=== PATIENT | male | born 1970 | race Caucasian/White ===

== ENCOUNTER 2021-04-12 00:03 | Emergency (ER) | payer BC, SELFPAY ==
[2021-04-12 00:08] VITALS: BP 127/74; PULSE 98; RESP 18; TEMP 36.6; O2SAT 95
--- NOTE | 2021-04-12 00:14 | W.ED.GENAD ---
Discharge Plan Disposition Patient Disposition: HOME Condition: Good Discharge Details Clinical Impression: Kidney stone on left side Primary Care Provider: None,None ED Provider: Isidoro Zafar Home Meds and New Rx's Prescriptions: New tamsulosin [Flomax] 0.4 mg capsule 0.4 mg PO DAILY Qty: 7 RF: 0 Discharge Instructions Instructions: Kidney Stones (ED) Additional Instructions: At this time you have evidence of a small kidney stone. This is likely the cause of your symptoms. This should pass within the next 12 to 48 hours, if not earlier. Please drink plenty of fluids, 10 to 12 cups/day at least. Please take 800 mg of ibuprofen every 6 hours and 1000 mg of Tylenol every 6 hours as needed for pain. These are the maximum doses of these medicines. Please take the Flomax as directed. This will help in expediting the passage of your kidney stone. If your pain stops, you can stop taking the Flomax. Please strain your urine to collect the stone. This can then be analyzed by your family doctor. If you do not have resolution of your symptoms after 48 to 72 hours please follow-up closely with your family doctor or return here for reassessment. If you notice any worsening of your symptoms, or any new symptoms such as inability to urinate, vomiting, diarrhea, fever, chills, shortness of breath, chest pain, numbness, weakness, or fainting , please return immediately to the emergency department for reevaluation. Please follow up with your primary care provider as soon as possible for reassessment and reevaluation. As always, it was a pleasure participating in your medical care today. Medical Decision Making This is a 50-year-old male with no significant past medical history who presents today for left flank pain. Patient states that about 6 PM he developed left-sided flank pain he describes as a 3 out of 10, sharp and achy, radiating down towards his left groin. He denies any genital pain or penile pain. He denies any urinary changes aside for slightly darker colored urine than normal. He has no history of kidney stones. No other aggravating or modifying factors. No other complaints at this time. He denies any nausea, vomiting, diarrhea, chest pain. Exam demonstrates no significant flank tenderness, no inguinal hernia, no testicular tenderness or penile tenderness. Differential is highest for kidney stone versus UTI or dehydration. We will start with urinalysis, Tylenol Motrin, monitor closely and reassess. 1:18 AM On reassessment pain is gone and notably tolerable with the patient after Tylenol and Motrin. Laboratory work-up is unremarkable. No white count, renal function stable. No electrolyte abnormality. Urinalysis shows no evidence of urinary tract infection, but does show notable RBCs. CT scan was ordered and demonstrates evidence of a 4 x 2 mm distal left UVJ calculus projecting into the bladder. I suspect that the stone may have passed at this point with the patient's notable improvement of symptoms. A single dose of Flomax was given here. We will give a prescription for home use if the patient feels persistent pain. Recommend continue Tylenol Motrin, and fluid intake. With pain well controlled, no evidence of infection, inability to tolerate p.o., or significant renal dysfunction I feel the patient can be discharged. Discussed red flags for which to return. I have extensively reviewed the treatment plan and discharge instructions with the patient. I have addressed all patient concerns at this time. The patient was made aware of what symptoms to monitor for that would warrant a return to the emergency department. Discussed the plan with the patient, they demonstrate verbal understanding and agreement with our assessment and plan at this time. The documentation in this chart was dictated using [employer] dictation software. Please excuse any dictation errors. FINDINGS: Liver: Simple cyst in the posterior right lobe Gallbladder and bile ducts: Normal. No calcified stones. No ductal dilation. Pancreas: Normal. No ductal dilation. Spleen: Normal. No splenomegaly. Adrenal glands: Normal. No mass. Kidneys and ureters: Mild left hydroureteronephrosis. Faint nephrocalcinosis bilaterally Faint left renal calculus in the midpole. Left renal cyst noted Stomach and bowel: Unremarkable. No obstruction. No mucosal thickening. Appendix: No evidence of appendicitis. Intraperitoneal space: Unremarkable. No free air. No significant fluid collection. Vasculature: Atherosclerosis. No abdominal aortic aneurysm. Lymph nodes: Unremarkable. No enlarged lymph nodes. Urinary bladder: 4 x 2 mm calculus in the distal left UVJ projecting into the bladder. Bladder is partially decompressed and question mildly thickened Reproductive: Unremarkable as visualized. Bones/joints: Degenerative changes in the spine No acute fracture. Soft tissues: Unremarkable. IMPRESSION: Mild left obstructive uropathy secondary to a 4 x 2 mm distal left UVJ calculus projecting into the bladder Faint nephrocalcinosis and faint left renal calculus in the midpole Thank you for allowing us to participate in the care of your patient. Dictated and Authenticated by: Ricardo Manriquez MD 04/12/2021 1:14 AM Eastern Time ([place] & [place]) HPI General Date/Time Provider Initiated Documentation: 04/12/21 00:06. HPI Narrative: This is a 50-year-old male with no significant past medical history who presents today for left flank pain. Patient states that about 6 PM he developed left-sided flank pain he describes as a 3 out of 10, sharp and achy, radiating down towards his left groin. He denies any genital pain or penile pain. He denies any urinary changes aside for slightly darker colored urine than normal. He has no history of kidney stones. No other aggravating or modifying factors. No other complaints at this time. He denies any nausea, vomiting, diarrhea, chest pain. Related Data Home Medications Medication Instructions Recorded Confirmed tamsulosin [Flomax] 0.4 mg PO DAILY #7 cap 04/12/21 Previous Rx's Medication Instructions Recorded tamsulosin [Flomax] 0.4 mg PO DAILY #7 cap 04/12/21 Allergies Allergy/AdvReac Type Severity Reaction Status Date / Time poison chante Allergy Intermediate Skin Rash Uncoded 04/12/21 00:11 General Stated Complaint: Urinary PARUL: 3 Review of Systems All systems reviewed & are unremarkable except as noted in HPI and below ON LICENSE OF [facility] Social History Smoking/Tobacco Use Status: Current every day Tobacco Type: cigarettes Smoking risk assessment performed?: Yes Alcohol Intake: former Drug use: Never Substance use type: does not use Do you feel safe at home: Yes Do you feel safe in your relationship?: Yes Exam Narrative Exam Narrative: 1.Const: Well-nourished, Well-developed, appearing stated age 2.Eyes: PERRL, no conjunctival injection, and symmetrical lids. 3.ENT: Atraumatic external nose and ears. Moist MM. Neck: Symmetric, trachea midline, No thyromegaly. 4.CVS: +S1/S2, No murmurs or gallops. Peripheral pulses 2+ and equal in all extremities. Brisk capillary refill in all extremities. 5.RESP: Unlabored respiratory effort. Clear to auscultation bilaterally. No wheezes rales or rhonchi 6.GI: Soft, Nontender/Nondistended, No hepatosplenomegaly. No guarding or rebound. No flank or CVA tenderness. Genital exam demonstrates normal male genitalia, nontender testicles, normal cremasteric reflex. No evidence of hernia. 7.MSK: Normocephalic/Atraumatic, Extremities w/o deformity or ttp No cyanosis or clubbing, Normal movement of all extremities 8.Skin: Warm, Dry. No rashes or lesions. 9.Neuro: anode rebuilder II-XII grossly intact. Sensation grossly intact, no focal neurologic deficits. 10.Psych: (AAO) x3. Appropriate mood and affect Course Vital Signs Vital signs: Vital Signs Temperature 36.6 C 04/12/21 00:08 Pulse 98 H 04/12/21 00:08 Respiratory Rate 18 04/12/21 00:08 Blood Pressure 127/74 04/12/21 00:08 Pulse Oximetry 95 04/12/21 00:08 Temperature 36.6 C 04/12/21 00:08 Temperature Source Skin 04/12/21 00:08 Pulse 98 H 04/12/21 00:08 Respiratory Rate 18 04/12/21 00:08 Blood Pressure 127/74 04/12/21 00:08 Pulse Oximetry 95 04/12/21 00:08 Pain Level 3 04/12/21 00:08
--- NOTE | 2021-04-12 00:15 | DI.CT_ITS ---
Exam(s) CT RENAL COLIC WO EXAM: CT RENAL COLIC WO CLINICAL HISTORY: suspect left kidney stone, hematuria. TECHNIQUE: Imaging Protocol: Axial computed tomography images with coronal and sagittal reformatted images were created and reviewed CONTRAST MATERIAL: Intravenous: none Oral: None COMPARISON: No exams were available for comparison FINDINGS: VISUALIZED LUNG BASES: Mild increased markings in the inferior lingular segment left lung at in the p osterior basal segment right lower lobe. No pleural effusions. ABDOMEN: There is no ascites. LIVER: In the medial subcapsular right hepatic lobe (adjacent to the right kidney) there is an 11 x 1 0 millimeter either subcapsular cyst or hemangioma. Difficult to assess without IV contrast. GALLBLADDER/BILIARY: No obvious gallbladder pathology. CBD is not dilated. PANCREAS: No evidence of pancreatic mass nor dilatation of the pancreatic duct. SPLEEN: Spleen is not enlarged. No obvious intrasplenic lesions. ADRENALS: There are no significant adrenal masses. KIDNEYS:No cysts evident. No solid renal masses. There is a 2 millimeter nonobstructive calculus at the midpole level of the left kidney. Mild dilatation of the left ureter which is due to intramural calculus at the left ureterovesical junction measuring 4 x 2 millimeters. Urinary bladder is not dis tended. Exhibits thicken the uniform wall. There are no calculi in the right ureter and right kidne y. ABDOMINAL AORTA: The abdominal aorta is calcified upper limits normal diameter LYMPH NODES: There is no retroperitoneal nor paraaortic adenopathy. ABDOMINAL WALL: No evidence of significant anterior abdominal wall hernia. GI: There is no evidence of bowel obstruction, free air, nor abscess. PELVIS: LYMPH NODES: There is no intrapelvic nor inguinal adenopathy. GI: No evidence of appendicitis.No evidence of sigmoid diverticulitis. URINARY BLADDER: Uniformly thickened wall. Intramural 4 x 2 millimeter calculus at the left ureterov esical junction. REPRODUCTIVE: Prostate size upper normal. Contains a calcifications therein. OSSEOUS: No significant osseous lesions. IMPRESSION: 1. There is mild dilatation left collecting system due to a culprit 4 x 2 millimeter distal left uret eral calculus which is intramural at left UVJ and partially projecting into the bladder lumen. 2. There is a 2 millimeter nonobstructive calculus at the midpole of the left kidney. No obvious lila culi in the right kidney. RADIATION DOSE DELIVERED: 533.71mGy.cm Total DLP DATA REPOSITORY: All CT scans at this facility are submitted to the National Radiology Data Registry (NRDR) Dose Index Registry (DIR) with the [employer] (ACR). RADIATION OPTIMIZATION: All CT scans at this facility use at least one of these dose optimization te chniques: automated exposure control; mA and/or kV adjustment per patient size (includes targeted exa ms where dose is matched to clinical indication); or iterative reconstruction.
[2021-04-12] MEDS: Acetaminophen 500 MG TAB 1000 MG PO (00:19)
[2021-04-12] MEDS: Ibuprofen 800 MG TAB PO (00:20)
[2021-04-12 00:23] LABS: Bilirubin Moderate (Negative); Blood Large (Negative); Clarity Cloudy (Clear); Glucose Negative (Negative); Ketones 40 mg/dL (Negative); Leukocyte Esterase Negative (Negative); Nitrite Negative (Negative); Specific Gravity >= 1.030 (1.005-1.025); pH 5.5 (5-8)
[2021-04-12 00:28] LABS: Bacteria Negative HPF (Negative); C & S Indicated? No; Casts Negative LPF (Negative); Crystals Negative HPF (Negative); Epithelial Cells Negative HPF (Negative); Mucus Negative (Negative); RBC >50 HPF (0-2); WBC Negative HPF (0-5)
[2021-04-12] MEDS: Tamsulosin 0.4 MG CAPCR PO (00:40)
[2021-04-12 00:56] LABS: Abs Immature Grans 0.04 10^3/uL (0.0-0.06); Absolute Basophil Count 0.02 10^3/uL (0.0-0.2); Absolute Eosinophil Count 0.13 10^3/uL (0.0-0.7); Absolute Lymphocyte Count 1.67 10^3/uL (1.2-3.4); Absolute Monocyte Count 0.68 10^3/uL (0.1-0.8); Absolute Neutrophil Count 7.59 10^3/uL (1.2-6.7); Basophils % 0.2; Eosinophils % 1.3; HCT 45.2 % (40.0-50.0); HGB 15.2 g/dL (13.5-17.5); Immature Grans % 0.4; Lymphocytes % 16.5; MCHC 33.6 % (32.0-36.0); MCV 92.1 fL (80-95); MPV 9.6 fL (8.0-11.0); Monocytes % 6.7; Neutrophils % 74.9; Nucleated RBC 0 %; Platelet Count 172 10^3/uL (130-400); RBC 4.91 10^6/uL (4.36-5.78); RDW 12.7 % (11.8-14.1); RDW-SD 43.6 fL; WBC 10.13 10^3/uL (4.4-10.8)
[2021-04-12 01:01] LABS: Anion Gap 12.1 mmol/L (3-11); BUN 26 mg/dL (7-18); CO2 25.9 mmol/L (21.0-32.0); Calcium 9.2 mg/dL (8.5-10.1); Chloride 103 mmol/L (98-107); Glucose 107 mg/dL (74-106); Sodium 141 mmol/L (136-145)
--- NOTE | 2021-04-12 01:15 | DI.VRAD_ITS ---
PROCEDURE INFORMATION: Exam: CT Abdomen And Pelvis Without Contrast Exam date and time: 04/12/2021 12:29 AM Age: 50 years old Clinical indication: Other: Left sided pain suspect kidey stone hematuria TECHNIQUE: Imaging protocol: Computed tomography of the abdomen and pelvis without contrast. Radiation optimization: All CT scans at this facility use at least one of these dose optimization techniques: automated exposure control; mA and/or kV adjustment per patient size (includes targeted exams where dose is matched to clinical indication); or iterative reconstruction. COMPARISON: No relevant prior studies available. FINDINGS: Liver: Simple cyst in the posterior right lobe Gallbladder and bile ducts: Normal. No calcified stones. No ductal dilation. Pancreas: Normal. No ductal dilation. Spleen: Normal. No splenomegaly. Adrenal glands: Normal. No mass. Kidneys and ureters: Mild left hydroureteronephrosis. Faint nephrocalcinosis bilaterally Faint left renal calculus in the midpole. Left renal cyst noted Stomach and bowel: Unremarkable. No obstruction. No mucosal thickening. Appendix: No evidence of appendicitis. Intraperitoneal space: Unremarkable. No free air. No significant fluid collection. Vasculature: Atherosclerosis. No abdominal aortic aneurysm. Lymph nodes: Unremarkable. No enlarged lymph nodes. Urinary bladder: 4 x 2 mm calculus in the distal left UVJ projecting into the bladder. Bladder is partially decompressed and question mildly thickened Reproductive: Unremarkable as visualized. Bones/joints: Degenerative changes in the spine No acute fracture. Soft tissues: Unremarkable. IMPRESSION: Mild left obstructive uropathy secondary to a 4 x 2 mm distal left UVJ calculus projecting into the bladder Faint nephrocalcinosis and faint left renal calculus in the midpole Dictated and Authenticated by: Ricardo Manriquez MD. Ordering:HIRA Chaudhry MD
[2021-04-12 01:37] VITALS: BP 126/77; PULSE 83; RESP 16; O2SAT 96
== END 2021-04-12 01:39 | disposition home or self-care (01) ==
PROVIDERS: Emergency Provider Student in an Organized Health Care Education/Training Program
DX: N20.0 Calculus of kidney (principal)
CPT/HCPCS: 36415; 80048; 99284; 74176; 81003; 81015; 85025; 99283

== ENCOUNTER 2021-06-18 13:15 | Emergency (ER) | payer BC, SELFPAY ==
--- NOTE | 2021-06-18 13:29 | ED.GENADUL_ITS ---
Discharge Plan Disposition Patient Disposition: HOME Condition: Stable Discharge Details Clinical Impression: Stress, Anxiety, Acute muscle stiffness of neck Primary Care Provider: None,None ED Provider: Dulce Maria Ochoa Home Meds and New Rx's Prescriptions: New methocarbamol 750 mg tablet 750 mg PO QID PRN (Reason: muscle spasm) Qty: 14 RF: 0 Discharge Instructions Instructions: Muscle Spasm (ED), Anxiety (ED) Additional Instructions: Please continue to encourage hydration. You may continue with Tylenol and/or ibuprofen as needed for discomfort. Heat and/or ice may also be of benefit. Please encourage gentle stretching. Massage may also be of benefit. You may try topical options such as lidocaine patch to help with your discomfort. Referral for physical therapy is also attached. Please call local physical therapist office to schedule follow-up appointment, number is at the top of the form. A prescription for muscle relaxant has been sent to your local pharmacy. This should help with the spasm component of her discomfort. Please do not drive or drink alcohol while taking this medication. In regard to your anxiety and stress, please continue to try and identify your anxiety triggers and reduce sleep as much as possible. Referral for local primary care has been sent. I would like for you to follow- up for your anxiety as well as your neck discomfort. If you develop numbness, tingling, weakness, increased pain or other new/worsening symptoms please seek care urgently once again. Stand Alone Forms: Physical Therapy Referral Discharge Data Discharge Date/Time-TO BE ENTERED AT DEPARTURE: 06/18/21 14:15 Medical Decision Making Patient is a pleasant 50-year-old male presenting today with chief complaint of neck pain. He states that the discomfort began insidiously approximately 5 months ago. He reports he does push or pull heavy things at work, patient works at [employer]. However, no sudden onset of discomfort. He states that since then, pain has remained fairly status quo. Denies any radiation of pain. Denies any fevers or chills. Is feeling otherwise well. Presents today with his pain has progressively increased. She does not report that his anxiety seems to greatly increased discomfort. When asked which is very on a 1-10 scale of discomfort, p atient did not feel the number is more tightness than pain and that his primary issue is likely associated with his chronic anxiety. Patient does not have a local primary care. He reports he has not seen a physician for routine follow-up care for several years. States that when he gets anxious, can become quite tremulous. States that his mother has similar features. He reports he increases his anxiety, the tightness in his neck and also increased. He denies any numbness or tingling. No weakness. Denies any radiation of the symptoms. On exam, patient appears very anxious. When discussing things that increase his anxiety, he does have a bit of a tremor that has seemed to go away once he is discussing more calm topics. He has no neurological deficits noted on exam. No midline tenderness. He is full range of motion of his neck. Pain is not elicited with palpation. Patient does draw a line along both trapezius, right more so than the left, as area of tightness. Patient I discussed options for treatment of his neck discomfort. I feel that this is most consistent with muscle tightness and stress. Again, I see no neurological deficit. Regarding his anxiety, patient does not have any thoughts of self-harm. He feels safe at home. I did feel that his anxiety has increased with time as his social situation has become more stressful. Patient is currently caring for both mother and father. He has a serious good support and does not feel like he needs immediate psychiatric evaluation. However, he is in agreement to discuss this further with primary care. Will refer for primary care follow-up as possible discussed with his anxiety as well as neck discomfort. Patient is agreeable to attending physical therapy for his neck pain as well. Will also help with muscle relaxers he does feel tight on exam. He has tried Tylenol, ibuprofen and topical options. He has not yet used lidocaine, may try this for today and advised that this is available [id number]. Return precautions were discussed. All his questions and concerns were addressed. Plan. HPI General Mode of arrival: ambulatory . Date/Time Provider Initiated Documentation: 06/18/21 13:29 . Limitations to Documentation: no limitations . Information obtained by: patient and RN notes reviewed . History of Present Illness 50 year old M presents to the emergency department with the chief complaint of neck pain, described as moderate, Quality is described as aching, and is localized to the neck. Patient reports no radiation. Patient started experiencing this month(s) and it has been intermittent. Immobilization improves symptom(s), Movement worsens symptoms (worse when at work) . Patient notes no other symptoms.. Patient did receive the following treatments prior to arrival, NSAID and other (tylenol) Related Data Home Medications Medication Instructions Recorded Confirmed methocarbamol 750 mg PO QID PRN #14 tab 06/18/21 Previous Rx's Medication Instructions Recorded methocarbamol 750 mg PO QID PRN #14 tab 06/18/21 Allergies Allergy/AdvReac Type Severity Reaction Status Date / Time poison chante Allergy Intermediate Skin Rash Uncoded 04/12/21 00:11 General PARUL: 3 Review of Systems Constitutional Constitutional: Reports as per HPI, Denies chills, Denies fatigue, Denies fever(s), Denies frequent falls and Denies headache(s) ENT Ears, Nose, Mouth, and Throat: Denies headache(s) and Reports neck pain Cardiovascular Cardiovascular: Denies chest pain, Denies dyspnea and Denies dyspnea on exertion Respiratory Respiratory: Denies cough, Denies dyspnea and Denies dyspnea on exertion Gastrointestinal Gastrointestinal: Denies abdominal pain, Denies change in bowel habits and Denies fecal incontinence Genitourinary Genitourinary: Reports as per HPI, Denies urinary hesitancy and Denies urinary incontinence Musculoskeletal Musculoskeletal: Reports as per HPI, Denies back pain, Denies muscle weakness, Reports neck pain, Denies numbness, Denies radiating pain into limb, Reports stiffness and Denies tingling Integumentary/Breasts Skin/Breast: Reports as per HPI and Denies rash Neurologic Neurologic: Reports as per HPI, Denies frequent falls, Denies headache(s), Denies localized weakness, Denies numbness, Denies radicular pain, Denies sensory deficit, Denies tingling and Denies paresthesias Endocrine Endocrine: Denies fatigue [facility] Social History Smoking/Tobacco Use Status: Current every day Tobacco Type: cigarettes Smoking risk assessment performed?: Yes Alcohol Intake: former Drug use: Never Substance use type: does not use Do you feel safe at home: Yes Do you feel safe in your relationship?: Yes Exam Const General: cooperative, healthy appearing, comfortable, no acute distress, well developed, well groomed and anxious Nutritional Appearance: average body habitus and well nourished Orientation: alert and awake Eyes General: appearance normal, both eyes and all related structures Neck Neck: normal visual inspection, full ROM, no lymphadenopathy and no meningeal signs Resp Effort & Inspection: normal respiratory effort and able to speak in complete sentences Auscultation: clear to auscultation bilaterally, no rales, no rhonchi and no wheezes Cardio Rate: regular rate Rhythm: regular rhythm Heart Sounds: S1 normal and S2 normal Back/Spine/Pelvis Cervical Spine: normal cervical lordosis, cervical ROM normal, cervical muscular tenderness (none with pain, indicates trapezius as area of dis), No pain with cervical ROM, cervical spasm (feels tight on both sides), No cervical spinal tenderness (no midline tenderness) and No step off deformity Thoracic/Lumbar Spine: thoracic and lumbar spine normal to inspection Skin General skin exam: no rashes or lesions noted Neuro General: patient alert and patient awake Cognition: normal cognition Speech: speech normal Gait: normal gait Motor: muscle tone normal throughout and strength 5/5 throughout Sensory Exam: no sensory deficits noted DTR's: Rt Biceps: 2+, Lt Biceps: 2+, Rt Brachioradialis: 2+ and Lt Brachioradialis: 2+ Extrem General: normal to inspection, full ROM, capillary refill normal, no joint enlargement, no pedal edema, no calf tenderness and normal gait Psych Appearance: grossly normal and well kempt Mental Status: mental status grossly normal Speech and Movement: speech and movement normal
[2021-06-18 13:53] VITALS: BP 149/88; PULSE 100; RESP 18; TEMP 36.9; O2SAT 97
[2021-06-18] MEDS: Lidocaine 5% Patch 1 PATCH TP (14:10)
--- NOTE | 2021-06-18 18:59 | NUR.NOTE ---
Nursing Note: referral faxed to care management for pcp/follow up - libl 06/18/21
--- NOTE | 2021-06-21 13:23 | CMPROGNOTE_ITS ---
- If Service Date Differs Date of service: 06/21/21 Time of Service: 13:23 Care Management Progress Note Brian is seen in the ED on 06/18/21 for anxiety and muscle stiffness of neck. At the request of ED provider, PAZ coordinates a referral to [facility] to assist him in re-establishing care with a PCP. A review of his medical chart and a phone call to the [facility] reveals that he was formerly seen at their facility.
== END 2021-06-18 14:15 | disposition home or self-care (01) ==
PROVIDERS: Emergency Provider Physician Assistant
DX: M43.6 Torticollis (principal); F41.9 Anxiety disorder, unspecified; Z73.3 Stress, not elsewhere classified
CPT/HCPCS: 99283

== ENCOUNTER 2021-08-30 01:56 | Outpatient (CLI) | payer BC, SELFPAY ==
[2021-08-30 16:05] LABS: Abs Immature Grans 0.01 10^3/uL (0.0-0.06); Absolute Basophil Count 0.02 10^3/uL (0.0-0.2); Absolute Lymphocyte Count 2.06 10^3/uL (1.2-3.4); Absolute Monocyte Count 0.38 10^3/uL (0.1-0.8); Absolute Neutrophil Count 2.29 10^3/uL (1.2-6.7); Basophils % 0.4; Eosinophils % 2.1; HCT 44.9 % (40.0-50.0); HGB 14.7 g/dL (13.5-17.5); Immature Grans % 0.2; Lymphocytes % 42.4; MCH 30.2 pg (27.0-33.0); MCHC 32.7 % (32.0-36.0); MCV 92.4 fL (80-95); MPV 9.3 fL (8.0-11.0); Monocytes % 7.8; Neutrophils % 47.1; Nucleated RBC 0 %; Platelet Count 161 10^3/uL (130-400); RBC 4.86 10^6/uL (4.36-5.78); RDW 13.2 % (11.8-14.1); RDW-SD 45.1 fL; WBC 4.86 10^3/uL (4.4-10.8)
[2021-08-30 17:06] LABS: ALT 48 U/L (16-63); AST 24 U/L (15-37); Albumin 4.2 g/dL (3.4-5.0); Alkaline Phosphatase 105 U/L (46-116); Anion Gap 9.8 mmol/L (3-11); BUN 19 mg/dL (7-18); Bilirubin, Total 0.4 mg/dL (0.2-1.0); CO2 26.2 mmol/L (21.0-32.0); CREATININE 0.8 mg/dL (0.70-1.30); Calcium 8.7 mg/dL (8.5-10.1); Calculated LDL 207 mg/dL (<100); Chloride 104 mmol/L (98-107); Cholesterol 266 mg/dL (<200); Glucose 91 mg/dL (74-106); HDL Cholesterol 44 mg/dL (40-60); Potassium 4.4 mmol/L (3.5-5.1); Sodium 140 mmol/L (136-145); TSH (W/Ref FT4) 1.39 uIU/mL (0.36-3.74); Total Protein 7.6 g/dL (6.4-8.2); Triglyceride 75 mg/dL (<150)
[2021-08-31 10:56] LABS: Hepatitis C Ab w Rflx HCV PCR Negative (Negative)
[2021-08-31 11:14] LABS: HIV-1/2 Ag & Ab Screen Negative (Negative)
== END 2021-08-30 01:57 | disposition home or self-care (01) ==
LOC: LBO 01:56
PROVIDERS: PCP Nurse Practitioner Adult Health; Visit Provider Nurse Practitioner Adult Health
DX: F41.9 Anxiety disorder, unspecified (principal); Z13.220 Encounter for screening for lipoid disorders; Z13.1 Encounter for screening for diabetes mellitus; Z11.4 Encounter for screening for human immunodeficiency virus [HIV]; Z11.59 Encounter for screening for other viral diseases
CPT/HCPCS: 36415; 80053; 80061; 86803; 87389; 84443; 85025

== ENCOUNTER 2022-03-24 03:42 | Outpatient (CLI) | payer BC, SELFPAY ==
[2022-03-24 14:26] LABS: Calculated LDL 130 mg/dL (<100); Cholesterol 189 mg/dL (<200); HDL Cholesterol 48 mg/dL (40-60); Triglyceride 55 mg/dL (<150)
== END 2022-03-24 03:43 | disposition home or self-care (01) ==
LOC: LBO 03:42
PROVIDERS: PCP Nurse Practitioner Adult Health; Visit Provider Nurse Practitioner Adult Health
DX: E78.5 Hyperlipidemia, unspecified (principal)
CPT/HCPCS: 36415; 80061